=== PATIENT | male | born 1975 | race Caucasian/White ===

== ENCOUNTER → 2019-12-02 13:51 | Outpatient (BNVA) | payer BC, SELFPAY | PROVIDERS: Family Provider Nurse Practitioner Family; PCP Nurse Practitioner Family; Visit Provider Registered Nurse | DX: R35.0 Frequency of micturition (principal) | CPT/HCPCS: 36416; 80053; 81000; 82962 ==

== ENCOUNTER → 2019-12-09 10:12 | Outpatient (BNVA) | payer BC, SELFPAY | PROVIDERS: Family Provider Nurse Practitioner Family; PCP Nurse Practitioner Family; Visit Provider Registered Nurse | DX: R35.0 Frequency of micturition (principal) | CPT/HCPCS: 87491; 87591 ==

== ENCOUNTER → 2019-12-30 10:21 | Outpatient (BNVA) | payer BC, SELFPAY | PROVIDERS: Family Provider Nurse Practitioner Family; PCP Registered Nurse; Visit Provider Nurse Practitioner Family | DX: R35.0 Frequency of micturition (principal); Z12.5 Encounter for screening for malignant neoplasm of prostate | CPT/HCPCS: 36415; 81003; 84153 ==

== ENCOUNTER 2021-03-18 09:36 | Outpatient (CLI) | payer BC, SELFPAY ==
[2021-03-18 09:47] VITALS: BP 128/87; PULSE 86; RESP 16; TEMP 36.6; O2SAT 99; BMI 29.1
[2021-03-18 10:30] VITALS: BP 120/86; PULSE 79; RESP 16; TEMP 36.9; O2SAT 97
[2021-03-18 11:19] VITALS: BP 134/97; PULSE 79; RESP 16; TEMP 36.6; O2SAT 98
== END 2021-03-18 09:37 | disposition home or self-care (01) ==
LOC: OPS 09:38
PROVIDERS: PCP Registered Nurse; Visit Provider Nurse Practitioner
DX: U07.1 COVID-19 (principal)
CPT/HCPCS: 96365

== ENCOUNTER 2022-09-20 07:06 | Day surgery (SDC) | payer BC, SELFPAY ==
[2022-09-18 10:40] VITALS: BMI 29.5
[2022-09-20 07:35] VITALS: BP 126/98; PULSE 63; RESP 18; TEMP 36.2; O2SAT 99
[2022-09-20] MEDS: sodium chloride 0.9% 1,000 ML 30 ML IV (07:44)
--- NOTE | 2022-09-20 08:01 | ANES.PREANE2 ---
Pre-Anesthetic Assessment Height/Weight: Height 1.83 m Weight 98.883 kg Temp Pulse Resp BP Pulse Ox O2 Del Method 97.2 F L 63 18 126/98 99 Room Air 09/20/22 07:35 09/20/22 07:35 09/20/22 07:35 09/20/22 07:35 09/20/22 07:35 09/20/22 07:35 Preop Diagnosis: screening, gerd, hemorrhoids Operation Date: 09/20/22 08:15 Proposed Procedures p [id number] egd/colon K64.9, K64.9, K21.9(Not Applicable) - DO yolande Reynoso Colonoscopy(Not Applicable) - Dagoberto Momin DO Familial anesthetic complications: none Was Beta Brandi taken within 24 hours: N/A Was Clonidine taken within 24 hours: N/A Last intake: Intake Last Liquid Date 09/19/22 Last Liquid Time 22:00 Last Solid Date 09/18/22 Social Alcohol (social) and Tobacco (cigar) Exam alert, oriented x 3, clear to auscultation bilaterally and regular rate & rhythm Airway Submandibular: within normal limits Cervical ROM: within normal limits Mallampati: Class III Dentition: full Pulmonary None reported CV/HEM None reported None reported Hepatic None reported GI Gastroesophageal Reflux Disease Hemorrhoids Metabolic None reported Musc/skel None reported Neuropsych None reported Anesthetic Plan ASA status: 2 Anesthesia: MAC Medications/Allergies Home Medications Medication Instructions Recorded Confirmed Last Taken Type hydrocortisone 2.5 % topical cream 1 applic GA QID hemorrhoids 3 08/22/22 09/18/22 09/18/22 Rx with perineal applicator weeks #30 grams (Anusol-HC) pantoprazole 40 mg tablet,delayed 40 mg PO BID 6 weeks #84 tabs 08/22/22 09/18/22 09/18/22 Rx release (Protonix) Allergies Allergy/AdvReac Type Severity Reaction Status Date / Time No Known Allergies Allergy Verified 09/20/22 07:34 Current Medications Generic Name Dose Route Start Last Admin Trade Name Freq PRN Reason Stop Dose Admin Sodium Chloride 1,000 mls @ 30 mls/hr 09/20/22 07:30 09/20/22 07:44 Sodium Chloride 0.9% IV 09/21/22 07:29 30 mls/hr .Q24H ROXANN Administration PFSH Anesthesia Medical History (Updated 08/22/22 @ 16:14 by Dagoberto Momin DO) Lower urinary tract symptoms (LUTS) Family History Mother Cancer Father Cancer Social History Smoking and tobacco status: current every day smoker Alcohol intake: never Substance/Drug Use: never Adopted: No Caregiver/support person: No Lives independently: No Household members: spouse Marital status: Current occupational status: employed Sexually active: Yes Do you think of yourself as: Straight/Heterosexual Current gender identity: Male Data Anesthesia Cardiac Studies: No Data to Display
--- NOTE | 2022-09-20 08:20 | W.PM.OPSUD ---
Surgery/Procedure H&P Update DATE OF PROCEDURE: September 20, 2022 DATE H&P PERFORMED: 08/22/22 H&P UPDATE INFORMATION: I have reviewed H&P completed within last 30 days, I have examined patient prior to procedure and No changes to prior documentation PREOP DIAGNOSIS: screening, gerd, hemorrhoids PLANNED PROCEDURE: Operation Date: 09/20/22 08:15 Proposed Procedures p [id number] egd/colon K64.9, K64.9, K21.9(Not Applicable) - DO yolande Reynoso Colonoscopy(Not Applicable) - Dagoberto Momin DO
[2022-09-20 09:17] VITALS: BP 115/80; PULSE 79; RESP 14; TEMP 36.1; O2SAT 96
[2022-09-20 09:28] VITALS: BP 114/80; PULSE 68; RESP 16; O2SAT 96
[2022-09-20 09:42] VITALS: BP 110/91; PULSE 65; RESP 16; O2SAT 99
--- NOTE | 2022-09-20 14:56 | ANE.PACU2 ---
Inpatient post-anesthesia follow up: Airway intact: Yes Vital signs: Temperature 97 F Pulse Rate 65 Respiratory Rate 16 Blood Pressure 110/91 Pulse Oximetry 99 Oxygen Delivery Me thod Room Air Oxygen Flow Rate Fraction of Inspir ed Oxygen Hydration adequate: Yes Nausea and vomiting: No Pain level: 2 Mental status: Baseline
== END 2022-09-20 10:00 | disposition home or self-care (01) ==
PROVIDERS: PCP Registered Nurse; Visit Provider Surgery
PROC: 0DJ08ZZ Inspection of Upper Intestinal Tract, Via Natural or Artificial Opening Endoscopic (ICD-10-PCS; CPT 43235; principal; 2022-09-20 08:15)
PROC: 0DJD8ZZ Inspection of Lower Intestinal Tract, Via Natural or Artificial Opening Endoscopic (ICD-10-PCS; CPT 45378; 2022-09-20 08:15)
DX: K64.9 Unspecified hemorrhoids (principal); K21.9 Gastro-esophageal reflux disease without esophagitis; K29.50 Unspecified chronic gastritis without bleeding; D12.2 Benign neoplasm of ascending colon; Z80.0 Family history of malignant neoplasm of digestive organs; K44.9 Diaphragmatic hernia without obstruction or gangrene
CPT/HCPCS: 43239; 45385; 88305; 88342; J2704; J7030

== ENCOUNTER → 2024-02-07 11:41 | Outpatient (BNVA) | payer BC, SELFPAY | PROVIDERS: PCP Registered Nurse; Visit Provider Registered Nurse | DX: I10 Essential (primary) hypertension (principal) | CPT/HCPCS: 80053; 80061; 85025 ==

== ENCOUNTER → 2025-02-16 08:07 | Outpatient (BNVA) | payer BC, SELFPAY | PROVIDERS: PCP Registered Nurse; Visit Provider Registered Nurse | DX: I10 Essential (primary) hypertension (principal) | CPT/HCPCS: 80053; 80061; 85025 ==